=== PATIENT | female | born 1965 | race Caucasian/White ===

== ENCOUNTER → 2017-03-08 | Outpatient (CLI) | payer BC ==
--- NOTE | 2017-03-09 12:58 | MAMMOGRAPHY REPORT ---
BILATERAL DIGITAL SCREENING MAMMOGRAM TOMOSYNTHESIS WITH CAD: 03/08/2017 CLINICAL HISTORY: Routine screening. Patient has no complaints. TECHNIQUE: Breast tomosynthesis in addition to standard 2D mammography was performed. Current study was also evaluated with a Computer Aided Detection (CAD) system. COMPARISON: Comparison is made to exams dated: 03/03/2016 mammogram, 02/25/2015 mammogram, 02/01/2014 mammogram, 01/31/2013 mammogram, 01/28/2012 mammogram, and 01/26/2011 mammogram - [facility]. BREAST COMPOSITION: There are scattered areas of fibroglandular density in both breasts. FINDINGS: There is a stable circumscribed subcentimeter mass in the 12:00 posterior right breast. N o new suspicious mass, architectural distortion or cluster of microcalcifications is seen. IMPRESSION: ACR BI-RADS CATEGORY 1: NEGATIVE There is no mammographic evidence of malignancy. A 1 year screening mammogram is recommended. The p atient will receive written notification of the results. Approximately 10% of breast cancers are not detected with mammography. A negative mammographic repor t should not delay biopsy if a clinically suggestive mass is present. Jaylin Wan M.D. ay/:03/08/2017 16:47:20 [employer]arn Texture Machine Operator: Casandra FINN(Madison)(Marnie)(YOHANNES), [facility] letter sent: Normal 1/2 BI-RADS Code: ACR BI-RADS Category 1: Negative
== END | disposition home or self-care (01) ==
LOC: C.MAMM 15:31
PROVIDERS: ATTEND Obstetrics & Gynecology
DX: Z12.31 Encounter for screening mammogram for malignant neoplasm of breast (principal); N63 Unspecified lump in breast

== ENCOUNTER 2017-04-17 12:22 | Emergency (ER) | payer BC ==
[~2017-04-17] VITALS: Ht 167.6 cm; Wt 68.0 kg
[2017-04-17 12:27] VITALS: Ht 167.6 cm; Wt 68.0 kg
--- NOTE | 2017-04-17 13:07 | DIAGNOSTIC IMAGING REPORT ---
RIGHT WRIST 5 VIEWS CLINICAL HISTORY: Fall with right wrist injury. FINDINGS: 5 views of the right wrist are obtained. No prior studies are available for comparison at the time of dictation. The skeletal structures are well mineralized. No fracture is seen. The joint spaces of the wrist are well-maintained. The overlying soft tissues are within normal limits. IMPRESSION: There is no radiographic evidence of right wrist fracture. Electronically signed by: Romeo Mcintosh M.D. 04/17/2017 1:05 PM Dictated Date/Time: 04/17/2017 1:04 PM
[2017-04-17 13:35] VITALS: BP 115/74; PULSE 80; TEMP 36.6; O2SAT 97
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
== END 2017-04-17 13:36 | disposition home or self-care (01) ==
LOC: C.EDB 12:22 → C.EDD 13:36
DX: S60.211A Contusion of right wrist, initial encounter (principal); V19.3XXA Pedal cyclist (driver) (passenger) injured in unspecified nontraffic accident, initial encounter; E03.9 Hypothyroidism, unspecified; K21.9 Gastro-esophageal reflux disease without esophagitis; K90.0 Celiac disease; D50.9 Iron deficiency anemia, unspecified; Z80.9 Family history of malignant neoplasm, unspecified; Z82.49 Family history of ischemic heart disease and other diseases of the circulatory system